=== PATIENT | female | born 1975 | race Two or more races ===

== ENCOUNTER 2019-02-14 16:19 | Emergency (ER) | payer OTHER ==
[~2019-02-14] VITALS: Ht 165.1 cm; Wt 86.2 kg
[~2019-02-14 16:19] MED LIST: ALBU8.5H6 INH; ALPR1TAB2 PO; CYAN25008 PO; CYCL5TAB PO; HYDR-2761 PO; MULT1CAP15 PO; NAPR220C4 PO; NITR100C PO; OXYM10TA PO; OXYM5TAB PO; SUMA50TA3 PO
[2019-02-14 16:41] VITALS: BP 157/67
[2019-02-14] MEDS ORDERED: IBUPROFEN 400 MG TABLET. PO ONE (17:30)
[2019-02-14] MEDS ORDERED: HYDROcodone/APAP 5/325MG 1 TAB TABLET PO ONE (17:30)
[2019-02-14] MEDS ORDERED: ONDANSETRON ODT 4 MG TAB.RAPDIS. PO ONE (17:30)
[2019-02-14] MEDS ORDERED: ONDA4TAB7 PO (18:14)
[2019-02-14] MEDS ORDERED: HYDR-3164 PO (18:14)
--- NOTE | 2019-02-14 18:15 | PHYS DOC ---
Past Medical History Past Medical History: Anxiety Additional Past Medical Histor: gout Past Surgical History: Cholecystectomy, Tubal ligation Alcohol Use: Occasionally Drug Use: Marijuana Adult General Chief Complaint Chief Complaint: ANKLE PROBLEM HPI HPI Patient is a 44 year old female with no significant medical history who presents today complaining of 10 out of 10 left lateral ankle pain that began today after she stepped and rolled her ankle. Patient states the pain is worse on weight-bearing. Patient states she has not taken anything to alleviate the pain. Review of Systems Review of Systems Constitutional: Denies fever or chills [] Musculoskeletal: Reports left ankle pain Integument: Denies rash or skin lesions [] Neurologic: Denies headache, focal weakness or sensory changes [] All other systems were reviewed and found to be within normal limits, except as documented in this note. Current Medications Current Medications Current Medications Medications (Trade) Dose Ordered Sig/Greg Start Time Stop Time Status Last Admin Dose Admin Acetaminophen/ Hydrocodone Bitart (Lortab 5/325) 2 tab 1X ONCE 02/14/19 17:30 02/14/19 17:31 DC 02/14/19 17:43 2 TAB Ibuprofen (Motrin) 800 mg 1X ONCE 02/14/19 17:30 02/14/19 17:31 DC 02/14/19 17:42 800 MG Ondansetron HCl (Zofran Odt) 4 mg 1X ONCE 02/14/19 17:30 02/14/19 17:31 DC 02/14/19 17:30 4 MG Allergies Allergies Allergies Coded Allergies Type Severity Reaction Last Updated Verified tree nut Allergy Severe HARD TO BREATHE 11/05/15 Yes omeprazole Allergy Intermediate Hives 11/05/15 Yes oxycodone Allergy Unknown VOMITING 11/05/15 No Physical Exam Physical Exam Constitutional: Well developed, well nourished, no acute distress, non-toxic appearance. [] Skin: Warm, dry, no erythema, no rash. [] Back: No tenderness, no CVA tenderness. [] Extremities: Moderate swelling noted to the left lateral ankle. Moderate tenderness on palpation of the left lateral ankle. Full range of motion to the left foot and left toes. +2 left pedal pulse. Cap refill less than 2 seconds left toes. Sensation intact to the left lower extremity. Neurologic: Alert and oriented X 3, normal motor function, normal sensory function, no focal deficits noted. [] Psychologic: Affect normal, judgement normal, mood normal. [] Current Patient Data Vital Signs Vital Signs Date Time Temp Pulse Resp B/P (MAP) Pulse Ox O2 Delivery O2 Flow Rate FiO2 02/14/19 17:43 16 98 Room Air 02/14/19 16:41 98.2 67 157/67 (97) 98.2 EKG EKG [] Radiology/Procedures Radiology/Procedures [] Course & Med Decision Making Course & Med Decision Making Pertinent Labs and Imaging studies reviewed. (See chart for details) This is a 44-year-old male patient presented to the ED today with left ankle pain after she stepped wrong and rolled her ankle. Left ankle x-rays interpreted by is noted for tibia fracture. Patient was placed in a stirrup and posterior leg splint by the durability technician, neurovascular exam done by me is normal. Ice elevation encouraged. Discharged with instructions to contact the orthopedic doctor on Sunday and set up a follow-up appointment. Crutches provided. Dragon Disclaimer Dragon Disclaimer This electronic medical record was generated, in whole or in part, using a voice recognition dictation system. Departure Departure Impression: Primary Impression: Left tibial fracture Disposition: HOME, SELF-CARE Condition: STABLE Referrals: Farzad ANNE MD (PCP) DIANNA LOPEZ II, MD call him on Sunday and follow up Patient Instructions: Tibial Fracture, Adult Additional Instructions: You were evaluated in the emergency room a different of the left ankle fracture. Try to ice and elevate the extremity, contact the provided orthopedic doctor on Sunday morning and set up a follow-up appointment. Do not bear weight on the left lower extremity. Scripts Ondansetron Hcl (ZOFRAN) 4 Mg Tablet 1 TAB PO Q6HRS, #20 TAB Prov: ALFREDO WILCOX ANVILSMITH 02/14/19 Hydrocodone/Apap 5-325 (NORCO 5-325 TABLET) 1 Each Tablet 1 TAB PO Q6-8HRS PRN for PAIN, #20 TAB Prov: ALFREDO WILCOX APRN 02/14/19 Problem Qualifiers Primary Impression: Left tibial fracture Encounter type: initial encounter Tibia location: distal Fracture type: closed Fracture morphology: other fracture Qualified Codes: S82.392A - Other fracture of lower end of left tibia, initial encounter for closed fracture ALFREDO WILCOX APRN Feb 14, 2019 18:14
--- NOTE | 2019-02-14 23:56 | RAD ---
Left ankle 3 views: Reason for examination: Fell today with pain and swelling. There appears to be an avulsion fracture off the distal tip of the fibula. No other definite site of fracture or dislocation is seen. The joint spaces are maintained. Plantar spur is seen on the calcaneus. There is also spurring at the insertion of the Achilles tendon. There is soft tissue swelling about the lateral malleolus. IMPRESSION: Small avulsion fracture off the distal tip of the fibula with soft tissue swelling. Electronically signed by: Adriane Fisher MD (02/14/2019 11:54 PM) [facility]
== END 2019-02-14 18:30 | disposition home or self-care (01) ==
LOC: ER 16:19
DX: S82.392A Other fracture of lower end of left tibia, initial encounter for closed fracture (principal); S82.832A Other fracture of upper and lower end of left fibula, initial encounter for closed fracture; Z88.8 Allergy status to other drugs, medicaments and biological substances; Z88.5 Allergy status to narcotic agent; X50.9XXA Other and unspecified overexertion or strenuous movements or postures, initial encounter; Y93.89 Activity, other specified; Y92.89 Other specified places as the place of occurrence of the external cause; Y99.8 Other external cause status
CPT/HCPCS: 29515; 73610; 99284; Q0162

== ENCOUNTER 2019-10-31 11:04 | Emergency (ER) | payer MEDICAID, OTHER ==
[~2019-10-31] VITALS: Ht 162.6 cm; Wt 72.6 kg
[~2019-10-31 11:04] MED LIST changes: +HYDR-3164 PO; +ONDA4TAB7 PO
[2019-10-31] MEDS ORDERED: IV NORMAL SALINE 1000ML BAG 1,000 ML IV SCH (11:44)
[2019-10-31] MEDS ORDERED: ASPIRIN 325 MG TABLET PO ONE (11:45)
[2019-10-31] MEDS ORDERED: ONDANSETRON PF 4 MG/2 ML VIAL. IVP ONE (11:45)
[2019-10-31] MEDS ORDERED: fentaNYL PF VIAL 100 MCG/2 ML VIAL IV ONE (11:45)
[2019-10-31 12:05] LABS: BASO # 0.1 x10^3/uL (0.0-0.2); BASO % 1 % (0-3); EOS # 0.7 x10^3/uL (0.0-0.7); EOS % 9 % (0-3); HEMATOCRIT 40.6 % (36.0-47.0); HEMOGLOBIN 13.9 g/dL (12.0-15.5); LYMPH # 1.7 x10^3/uL (1.0-4.8); LYMPH % 22 % (24-48); MEAN CORPUSCULAR HEMOGLOBIN 30 pg (25-35); MEAN CORPUSCULAR HGB CONC 34 g/dL (31-37); MEAN CORPUSCULAR VOLUME 88 fL (79-100); MONO # 0.4 x10^3/uL (0.0-1.1); MONO % 6 % (0-9); NEUT # 4.7 x10^3/uL (1.8-7.7); NEUT % 62 % (31-73); PLATELET COUNT 286 x10^3/uL (140-400); RED BLOOD COUNT 4.59 x10^6/uL (3.50-5.40); RED CELL DISTRIBUTION WIDTH 13.2 % (11.5-14.5); WHITE BLOOD COUNT 7.7 x10^3/uL (4.0-11.0)
[2019-10-31 12:09] LABS: BILIRUBIN,URINE NEGATIVE (NEG); CLARITY,URINE CLOUDY; COLOR,URINE YELLOW; NITRITE,URINE NEGATIVE (NEG); PROTEIN,URINE NEGATIVE (NEG-TRACE)
[2019-10-31 12:17] LABS: RBC,URINE OCC /HPF (0-2); SQUAMOUS EPITHELIAL CELL,UR MANY /LPF; WBC,URINE OCC /HPF (0-4)
--- NOTE | 2019-10-31 12:17 | PHYS DOC ---
Past Medical History Past Medical History: Anxiety Additional Past Medical Histor: gout Past Surgical History: Cholecystectomy, Tubal ligation Alcohol Use: Occasionally Drug Use: Marijuana Adult General Chief Complaint Chief Complaint: CHEST PAIN HPI HPI Patient is a 44 year old female with history of GERD, DM, HTN, tupal ligation who presents with chest pain. Pt reports her dull chest pain started 2 hrs in the mid chest that radiates to the left arm and back. The pain is worsened with exertion and movement. Better by lying flat. She tried "Tums" since she thought it was her stomach; however, she did not get any relieve from that. Denies any previous episodes of similar symptoms. Denies any OCP or hormone therapy, recent travel or sick contact, trauma or fall, unilateral leg pain or personal history of PE or DVT. Pt reports things has been a little stressful at home. Her mother had ACS. Review of Systems Review of Systems Constitutional: Denies fever or chills [] Eyes: Denies change in visual acuity, redness, or eye pain [] HENT: Denies nasal congestion or sore throat [] Respiratory: Denies cough or shortness of breath [] Cardiovascular: No additional information not addressed in HPI [] GI: Denies abdominal pain, nausea, vomiting, bloody stools or diarrhea [] : Denies dysuria or hematuria [] Musculoskeletal: Denies back pain or joint pain [] Integument: Denies rash or skin lesions [] Neurologic: Denies headache, focal weakness or sensory changes [] Endocrine: Denies polyuria or polydipsia [] All other systems were reviewed and found to be within normal limits, except as documented in this note. Current Medications Current Medications Current Medications Medications (Trade) Dose Ordered Sig/Greg Start Time Stop Time Status Last Admin Dose Admin Aspirin (Tiffanie Aspirin) 325 mg 1X ONCE 10/31/19 11:45 10/31/19 11:59 DC 10/31/19 12:34 325 MG Famotidine (Pepcid Vial) 20 mg 1X ONCE 10/31/19 13:00 10/31/19 13:01 DC 10/31/19 13:33 20 MG Fentanyl Citrate (Fentanyl 2ml Vial) 50 mcg 1X ONCE 10/31/19 11:45 10/31/19 11:59 DC 10/31/19 12:38 50 MCG Ondansetron HCl (Zofran) 4 mg 1X ONCE 10/31/19 11:45 10/31/19 11:59 DC 10/31/19 12:35 4 MG Sodium Chloride 1,000 ml @ 1,000 mls/hr Q1H 10/31/19 11:44 10/31/19 12:43 DC 10/31/19 12:36 1,000 MLS/HR Allergies Allergies Allergies Coded Allergies Type Severity Reaction Last Updated Verified tree nut Allergy Severe HARD TO BREATHE 11/05/15 Yes omeprazole Allergy Intermediate Hives 11/05/15 Yes oxycodone Allergy Unknown VOMITING 11/05/15 No Physical Exam Physical Exam Constitutional: Well developed, well nourished, no acute distress, non-toxic appearance. [] HENT: Normocephalic, atraumatic, bilateral external ears normal, oropharynx moist, no oral exudates, nose normal. [] Eyes: PERRLA, EOMI, conjunctiva normal, no discharge. [] Neck: Normal range of motion, no tenderness, supple, no stridor. [] Cardiovascular:Heart rate regular rhythm, no murmur [] Lungs & Thorax: Bilateral breath sounds clear to auscultation [] Abdomen: Bowel sounds normal, soft, no tenderness, no masses, no pulsatile masses. [] Skin: Warm, dry, no erythema, no rash. [] Back: No tenderness, no CVA tenderness. [] Extremities: No tenderness, no cyanosis, no clubbing, ROM intact, no edema. [] Neurologic: Alert and oriented X 3, normal motor function, normal sensory function, no focal deficits noted. [] Psychologic: Affect normal, judgement normal, mood normal. [] Current Patient Data Vital Signs Vital Signs Date Time Temp Pulse Resp B/P (MAP) Pulse Ox O2 Delivery O2 Flow Rate FiO2 10/31/19 13:09 16 97 Room Air 10/31/19 11:20 98.0 65 142/70 (94) 98.0 Lab Values Laboratory Tests Test 10/31/19 11:30 10/31/19 11:53 10/31/19 11:55 White Blood Count 7.7 x10^3/uL (4.0-11.0) Red Blood Count 4.59 x10^6/uL (3.50-5.40) Hemoglobin 13.9 g/dL (12.0-15.5) Hematocrit 40.6 % (36.0-47.0) Mean Corpuscular Volume 88 fL (79-100) Mean Corpuscular Hemoglobin 30 pg (25-35) Mean Corpuscular Hemoglobin Concent 34 g/dL (31-37) Red Cell Distribution Width 13.2 % (11.5-14.5) Platelet Count 286 x10^3/uL (140-400) Neutrophils (%) (Auto) 62 % (31-73) Lymphocytes (%) (Auto) 22 % (24-48) L Monocytes (%) (Auto) 6 % (0-9) Eosinophils (%) (Auto) 9 % (0-3) H Basophils (%) (Auto) 1 % (0-3) Neutrophils # (Auto) 4.7 x10^3/uL (1.8-7.7) Lymphocytes # (Auto) 1.7 x10^3/uL (1.0-4.8) Monocytes # (Auto) 0.4 x10^3/uL (0.0-1.1) Eosinophils # (Auto) 0.7 x10^3/uL (0.0-0.7) Basophils # (Auto) 0.1 x10^3/uL (0.0-0.2) D-Dimer ([place]orena) 0.32 ug/mlFEU (0.00-0.50) Sodium Level 140 mmol/L (136-145) Potassium Level 3.5 mmol/L (3.5-5.1) Chloride Level 105 mmol/L (98-107) Carbon Dioxide Level 26 mmol/L (21-32) Anion Gap 9 (6-14) Blood Urea Nitrogen 8 mg/dL (7-20) Creatinine 0.6 mg/dL (0.6-1.0) Estimated GFR (Cockcroft-Gault) 109.1 BUN/Creatinine Ratio 13 (6-20) Glucose Level 98 mg/dL (70-99) Calcium Level 8.5 mg/dL (8.5-10.1) Magnesium Level 2.0 mg/dL (1.8-2.4) Total Bilirubin 0.3 mg/dL (0.2-1.0) Aspartate Amino Transferase (AST) 15 U/L (15-37) Alanine Aminotransferase (ALT) 22 U/L (14-59) Alkaline Phosphatase 96 U/L (46-116) Creatine Kinase 100 U/L (26-192) Creatine Kinase MB (Mass) 1.2 ng/mL (0.0-3.6) Creatine Kinase MB Relative Index 1.2 % (0-4) Troponin I Quantitative < 0.017 ng/mL (0.000-0.055) Total Protein 6.4 g/dL (6.4-8.2) Albumin 3.6 g/dL (3.4-5.0) Albumin/Globulin Ratio 1.3 (1.0-1.7) Lipase 852 U/L (73-393) H Urine Collection Type Unknown Urine Color Yellow Urine Clarity Cloudy Urine pH 7.0 Urine Specific [place] 1.010 Urine Protein Negative mg/dL (NEG-TRACE) Urine Glucose (UA) Negative mg/dL (NEG) Urine Ketones (Stick) Negative mg/dL (NEG) Urine Blood Negative (NEG) Urine Nitrite Negative (NEG) Urine Bilirubin Negative (NEG) Urine Urobilinogen Dipstick 1.0 mg/dL (0.2 mg/dL) Urine Leukocyte Esterase Negative (NEG) Urine RBC Occ /HPF (0-2) Urine WBC Occ /HPF (0-4) Urine Squamous Epithelial Cells Many /LPF Urine Bacteria Few /HPF (0-FEW) Urine Mucus Slight /LPF Urine Opiates Screen Neg (NEG) Urine Methadone Screen Neg (NEG) Urine Barbiturates Neg (NEG) Urine Phencyclidine Screen Neg (NEG) Urine Amphetamine/Methamphetamine Neg (NEG) Urine Benzodiazepines Screen Neg (NEG) Urine Cocaine Screen Neg (NEG) Urine Cannabinoids Screen Pos (NEG) Urine Ethyl Alcohol Neg (NEG) POC Urine HCG, Qualitative Hcg negative (Negative) Laboratory Tests 10/31/19 11:30 Laboratory Tests 10/31/19 11:30 EKG EKG 11:16:03 sinus rhythm, rate 66bpm, Inverted T wave in V1-2. No ST elevation. Wandering baseline. Radiology/Procedures Radiology/Procedures [] Course & Med Decision Making Course & Med Decision Making Pertinent Labs and Imaging studies reviewed. (See chart for details) Patient is a 44 year old female with history of GERD, DM, HTN who presents with chest pain. DDX: PNA, ACS, MSK-chontochonritis, doubt PE with HPI, PE and unremarkable vitals. Will order labs, CXR and EKG. Provide zofran and pain control at bedside. Pt is stable. Will reassess 12:57pm Troponin negative, umremarkable D-dimer. Pt's HR was in the 40s in the room. However, she reports having a low heart rate at baseline. Her pain has decreased from 8/10 to 3/10. And nausea has improved. CXR pending. Will provide some pepcid. Will reassess. Kavon Disclaimer Dragon Disclaimer This electronic medical record was generated, in whole or in part, using a voice recognition dictation system. Departure Departure Impression: Primary Impression: Chest pain Disposition: HOME, SELF-CARE Condition: STABLE Referrals: Farzad ANNE MD (PCP) ALON MANNING MD Patient Instructions: Chest Pain (Nonspecific), [id number] The HEART Score for CP Pts HEART Score for Chest Pain: HEART Score for Chest Pain Response (Comments) Value History Moderately Suspicious 1 ECG Nonspecific Repolarizatio 1 Age < 45 0 Risk Factors 1 or 2 Risk Factors 1 Troponin < Normal Limit 0 Total 3 Risk Factors: Risk Factors: DM, Current or recent (<one month) smoker, HTN, HLP, family history of CAD, obesity. Risk Scores: Score 0 - 3: 2.5% MACE over next 6 weeks - Discharge Home Score 4 - 6: 20.3% MACE over next 6 weeks - Admit for Clinical Observation Score 7 - 10: 72.7% MACE over next 6 weeks - Early Invasive Strategies Problem Qualifiers Primary Impression: Chest pain Chest pain type: unspecified Qualified Codes: R07.9 - Chest pain, unspecified MIHIR SOW DO Oct 31, 2019 12:16
[2019-10-31 12:18] LABS: BACTERIA,URINE FEW /HPF (0-FEW)
[2019-10-31 12:19] LABS: BARBITURATES NEG (NEG); BENZODIAZEPINES NEG (NEG); CANNABINOIDS POS (NEG); COCAINE NEG (NEG); METHADONE NEG (NEG); OPIATES NEG (NEG); PHENCYCLIDINE NEG (NEG)
--- NOTE | 2019-10-31 12:19 | EKG ---
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
[2019-10-31 12:20] LABS: CALCIUM 8.5 mg/dL (8.5-10.1); CREATININE 0.6 mg/dL (0.6-1.0); GFR 109.1; POTASSIUM 3.5 mmol/L (3.5-5.1)
[2019-10-31 12:20] LABS: AMPHETAMINE/METHAMPHETAMINE NEG (NEG)
[2019-10-31 12:27] LABS: ALBUMIN 3.6 g/dL (3.4-5.0); ALBUMIN/GLOBULIN RATIO 1.3 (1.0-1.7); TOTAL BILIRUBIN 0.3 mg/dL (0.2-1.0); TOTAL PROTEIN 6.4 g/dL (6.4-8.2)
[2019-10-31] MEDS ORDERED: FAMOTIDINE 20 MG/2 ML VIAL IVP ONE (13:00)
--- NOTE | 2019-10-31 13:23 | RAD ---
CHEST PA LATERAL History: Chest pain Comparison: 11/05/2015 to chest x-ray exam. Findings: Frontal and lateral views of the chest were obtained. The cardiomediastinal silhouette is normal. Pulmonary vasculature is normal. The lungs are clear. No pleural effusion or pneumothorax is seen. There is no acute bone abnormality. Right upper quadrant surgical clips are present. IMPRESSION: No acute cardiopulmonary process. Electronically signed by: Vishal Juarez MD (10/31/2019 1:20 PM) [facility]
[2019-10-31 14:30] VITALS: BP 133/60
== END 2019-10-31 14:48 | disposition home or self-care (01) ==
LOC: ER 11:04
DX: R07.89 Other chest pain (principal); K21.9 Gastro-esophageal reflux disease without esophagitis; E11.9 Type 2 diabetes mellitus without complications; I10 Essential (primary) hypertension; M10.9 Gout, unspecified; Z88.5 Allergy status to narcotic agent; Z91.018 Allergy to other foods; Z88.8 Allergy status to other drugs, medicaments and biological substances
CPT/HCPCS: 36415; 71046; 80053; 80307; 81001; 81025; 82553; 83690; 83735; 84484; 85025; 85379; 93005; 96361; 96374; 96375; 99285; J2405; J3010; J3490; J7030

== ENCOUNTER → 2021-01-31 | Outpatient (CLI) | payer MEDICAID ==
[~2021-01-31] MED LIST changes: +REGADENOSON 0.4 MG/5 ML DISP.SYRIN. IV ONE
--- NOTE | 2021-01-31 12:48 | RAD ---
MR#: [id number] Date of Study: 01/31/2021 Ordering Physician: HENRRY MCKEON, Referring Physician: JUDAH LOVING Tech: RT Moreno McraeR) (N) APPROVED REPORT Test Type: Pharmacological Stress Nurse/Tech: Caroline Scott RN Test Indications: chest pain,shortness of breath,and fatigue Cardiac History: Smoker Medications: See Electronic Medical Record Medical History: See Electronic Medical Record Resting ECG: SB Resting Heart Rate: 47 bpm Resting Blood Pressure: 117/67mmHg Pretest Chest Pain: Atypical angina Nurse/Tech Notes S1,S2 and lungs diminished in the bases. Consent: The procedure was explained to the patient in lay terms. Informed consent was witnessed. Armin eout was entered into [employer]. History and Stress Test performed by RT Clementina (R) (N) Pharm. Details Pharmacologic stress testing was performed using 0.4mg per 5ml of regadenoson given intravenously ove r 7-10 seconds. Stress Symptoms Dyspnea,patient complained of 10/10 chest pain at 2 minute harry of study POST EXERCISE Reason for Termination: Infusion complete Target HR: No Max HR: 109 bpm 73% of Maximum Predicted HR: 148 bpm Max Blood Pressure: 128/48mmHg Blood Pressure response to exercise: Normal blood pressure response during stress. Heart Rate response to exercise: WNL Chest Pain: Yes. see note above Arrhythmia: No. ST Change: No. INTERPRETATION Stress EKG Conclusion: The resting EKG showed a sinus rhythm with mild nonspecific ST-T wave changes. The stress EKG showed no significant changes from baseline. No EKG evidence of stress-induced ischemia. Imaging Protocol IMAGE PROTOCOL: Rest Tc-99m/stress Tc-99m 1 day Rest: Stress: Viability: Radiopharm.Tc99m KuwgesgjxMq11p Sestamibi Dose10.5mCi 31mCi Duration 15min. 10min. Img Date 01/31/2021 01/31/2021 Inj-Img Libr82zny. 60min. Rest Admin Site:IV - Right AntecubitalAdministrator:ANGELICA Jacobsen, ARRT (R)(N) Stress Admin Site: IV - Right AntecubitalAdministrator: Billie Chan, JUDAHTCB, ARRT (R)(N) STRESS DATA End Diast. Vol.131.0mlAv. Heart Rate50.0bpm End Syst. Vol.35.0mlCO Index BSA4.8L/min Myocardial Zmtb478.0gEject. Iutnpmjp20.0% Stress Rates Pk. Fill Rate2.39EDV/secLVtime Pk. Fill 186.17msec Pk. Empty Rate2.62ESV/secLVtime Pk. Clkpg633.69msec 10/31 Pk. Fill1.66EDV/sec Stress Scores Regional WT0.00Summed WT0.00 Regional WM0.00Summed WM0.00 LV Perfusion The stress scans showed no significant defects. The rest scans showed no significant defects. Nuclear imaging shows no reversible ischemia or infarct. Wall Motion Left ventricular systolic function is normal with an ejection fraction of 68%. LV Perf. Quant 17 Seg. SSS1.00 17 Seg. SRS1.00 17 Seg. SDS1.00 Stress Defect Extent (% LAD)0.00Rest Defect Extent (% LAD)5.60Rev. Defect Extent (% LAD)0.00 Stress Defect Extent (% LCX) 0.00Rest Defect Extent (% LCX)3.80Rev. Defect Extent (% LCX)0.00 Stress Defect Extent (% RCA)0.00Rest Defect Extent (% RCA)0.00Rev. Defect Extent (% RCA)0.00 Stress Defect Extent (% LYRIC)0.00Rest Defect Extent (% LYRIC)3.00Rev. Defect Extent (% LYRIC)0.00 Conclusion 1. No EKG evidence of stress-induced ischemia. 2. Nuclear imaging shows no reversible ischemia or infarct. 3. Normal left ventricular systolic function with an ejection fraction of 68%. 4. Low risk Lexiscan nuclear stress test. Signed by : Henrry Mckeon MD Electronically Approved : 01/31/2021 12:48:08
== END ==
LOC: NM 09:08
PROVIDERS: ATTEND Internal Medicine Cardiovascular Disease
DX: R07.9 Chest pain, unspecified (principal); R06.02 Shortness of breath; Z87.891 Personal history of nicotine dependence
CPT/HCPCS: 78452; 93017; A9500; J2785

== ENCOUNTER 2021-08-07 16:55 | Emergency (ER) | payer MEDICAID ==
[~2021-08-07] VITALS: Ht 162.6 cm; Wt 98.0 kg
[~2021-08-07 16:55] MED LIST changes: -REGADENOSON 0.4 MG/5 ML DISP.SYRIN. IV ONE
[2021-08-07 17:07] VITALS: BP 151/68
--- NOTE | 2021-08-07 17:19 | PHYS DOC ---
Past Medical History Past Medical History: Anxiety Additional Past Medical Histor: gout, bradycardia Past Surgical History: Cholecystectomy, Tubal ligation Smoking Status: Current Every Day Smoker Alcohol Use: Occasionally Drug Use: Marijuana General Adult EDM: Chief Complaint: CHEST PAIN HPI: HPI: Patient is a 46 year old female with history of tobacco abuse, anxiety who presents with chest tightness. Was in a seated position and thinking about financial problems in her life/house foreclosure when she began to feel very anxious, and started to have chest tightness, and tingling in the hands. Chest tightness radiated towards the left neck and the left shoulder. She went to a [employer] station, concerned that she may have a heart attack, was brought to the emergency department. Symptoms have vastly improved at this point. Denies previous history of anxiety attacks or chest pain. No history of DM, HTN, HLD. Does not know her family history. No recent lower extremity edema, estrogen use, hospitalizations/surgeries, no cancer history. No hemoptysis. States that she recovered from Covid approximately 1 month ago. Denies ever having any serious symptoms. Review of Systems: Review of Systems: Constitutional: Denies fever or chills. [] Eyes: Denies change in visual acuity. [] HENT: Denies nasal congestion or sore throat. [] Respiratory: Denies cough or shortness of breath. [] Cardiovascular: Reports chest pain. Denies edema. [] GI: Denies abdominal pain, nausea, vomiting, bloody stools or diarrhea. [] : Denies dysuria. [] Musculoskeletal: Denies back pain or joint pain. [] Integument: Denies rash. [] Neurologic: Denies headache, focal weakness or sensory changes. [] Endocrine: Denies polyuria or polydipsia. [] Lymphatic: Denies swollen glands. [] Psychiatric: Reports anxiety Heart Score: C/O Chest Pain: Yes HEART Score for Chest Pain: HEART Score for Chest Pain Response (Comments) Value History Slighlty/Non-Suspicious 0 ECG Normal 0 Age < 45 0 Risk Factors 1 or 2 Risk Factors 1 Troponin < Normal Limit 0 Total 1 Risk Factors: Risk Factors: Smoker, obesity Risk Scores: Score 0 - 3: 2.5% MACE over next 6 weeks - Discharge Home Score 4 - 6: 20.3% MACE over next 6 weeks - Admit for Clinical Observation Score 7 - 10: 72.7% MACE over next 6 weeks - Early Invasive Strategies Allergies: Allergies: Allergies Coded Allergies Type Severity Reaction Last Updated Verified tree nut Allergy Severe HARD TO BREATHE 11/05/15 Yes omeprazole Allergy Intermediate Hives 11/05/15 Yes oxycodone Allergy Unknown VOMITING 11/05/15 No Physical Exam: PE: Constitutional: Well developed, well nourished, no acute distress, non-toxic appearance. [] HENT: Normocephalic, atraumatic, bilateral external ears normal, oropharynx moist, no oral exudates, nose normal. [] Eyes: PERRLA, EOMI, conjunctiva normal, no discharge. [] Neck: Normal range of motion, no tenderness, supple, no stridor. [] Cardiovascular:Heart rate regular rhythm, no murmur [] Lungs & Thorax: Bilateral breath sounds clear to auscultation [] Abdomen: Bowel sounds normal, soft, no tenderness, no masses, no pulsatile masses. [] Skin: Warm, dry, no erythema, no rash. [] Back: No tenderness, no CVA tenderness. [] Extremities: Radial and DP pulses intact bilaterally. No tenderness, no cyanosis, no clubbing, ROM intact, no edema. [] Neurologic: Alert and oriented X 3, normal motor function, normal sensory function, no focal deficits noted. [] Psychologic: Anxious affect, congruent mood. Current Patient Data: Labs: Laboratory Tests Test 08/07/21 16:59 POC Urine HCG, Qualitative Hcg negative (Negative) EKG: EKG: Sinus rhythm. Rate 55. Normal intervals. Normal axis. No acute ischemic changes. [] Radiology/Procedures: Radiology/Procedures: [] Impression: [facility] [address] [place], [place] [id number] IMAGING REPORT Signed PATIENT: SHANE BARROS ACCOUNT: [id number] : 1975 LOCATION: ER AGE: 46 SEX: F EXAM STATUS: PRE ER ORD. PHYSICIAN: THANH GARVEY MD REASON: chest tightness, s/p covid infection 1 mo ago PROCEDURE: CHEST AP ONLY XR CHEST 1V Clinical History: Reason: chest tightness, s/p covid infection 1 mo ago / Spl. Instructions: / History: Technique: AP view of the chest was obtained at 08/07/2021 5:33 PM. Comparison: None. Findings: The cardiomediastinal silhouette is normal. The pulmonary vasculature is normal. The lungs and pleural margins are clear. Impression: No evidence of an acute cardiopulmonary process. Electronically signed by: Phan Patton III, MD (08/07/2021 5:57 PM) [facility] DICTATED and SIGNED BY: PHAN PATTON III, MD DATE: 08/07/21 [id number] 0 Course & Med Decision Making: Course & Med Decision Making Pertinent Labs and Imaging studies reviewed. (See chart for details) Patient 46-year-old female who presents with anxiety and chest pain starting when thinking about foreclosure on her house. Most consistent with anxiety attack, with numbness in her hands and hyperventilation. EKG entirely nonischemic. Given obesity and smoking, will obtain a single troponin. If negative HEART Score is 1. Feel no further ACS evaluation needed. PERC negative. No PE work up indicated. Will obtain CXR to exclude mass, acute pulmonary process. No risk factors for aortic disease, pulses intact. Highly unlikely. No n/v to suggest esophageal injury. Hx of gastritis, could potentially be contributing. CBC, CMP, Troponin, CXR pending. 1718 Normal cell counts, no anemia. CXR clear. CMP unremarkable. Troponin negative. Low enough suspicion, that I will not pursue delta troponin. Will plan on DC with PCP follow up. Return precautions discussed. Kavon Disclaimer: Kavon Disclaimer: This electronic medical record was generated, in whole or in part, using a voice recognition dictation system. Departure Departure Impression: Primary Impression: Chest tightness Additional Impression: Anxious mood Disposition: HOME / SELF CARE / HOMELESS Condition: STABLE Referrals: Farzad ANNE MD (PCP) Schedule appointment in the next week Additional Instructions: Your chest x-ray, labs, and EKG were reassuring. If your symptoms persist please follow-up with your primary care doctor. If you develop chest pressure that is worse with walking or exerting yourself please return to the emergency department for reevaluation. Develop other new/concerning symptoms such as shortness of breath, fever/chills, severe abdominal pain etc. please return to the emergency department for reevaluation as well. Otherwise please follow-up with your primary care doctor in the next week. THANH GARVEY MD Aug 07, 2021 17:19
[2021-08-07 17:41] LABS: BASO # 0.1 x10^3/uL (0.0-0.2); BASO % 1 % (0-3); EOS # 0.9 x10^3/uL (0.0-0.7); EOS % 10 % (0-3); HEMATOCRIT 38.1 % (36.0-47.0); HEMOGLOBIN 13.2 g/dL (12.0-15.5); LYMPH # 2.2 x10^3/uL (1.0-4.8); LYMPH % 22 % (24-48); MEAN CORPUSCULAR HEMOGLOBIN 31 pg (25-35); MEAN CORPUSCULAR HGB CONC 35 g/dL (31-37); MEAN CORPUSCULAR VOLUME 88 fL (79-100); MONO # 0.6 x10^3/uL (0.0-1.1); MONO % 7 % (0-9); NEUT % 61 % (31-73); PLATELET COUNT 263 x10^3/uL (140-400); RED BLOOD COUNT 4.32 x10^6/uL (3.50-5.40); RED CELL DISTRIBUTION WIDTH 12.9 % (11.5-14.5); WHITE BLOOD COUNT 9.9 x10^3/uL (4.0-11.0)
[2021-08-07 17:49] LABS: CREATININE 0.6 mg/dL (0.6-1.0); GFR 108.1; POTASSIUM 3.7 mmol/L (3.5-5.1)
[2021-08-07 17:55] LABS: ALBUMIN 3.7 g/dL (3.4-5.0); ALBUMIN/GLOBULIN RATIO 1.4 (1.0-1.7); TOTAL BILIRUBIN 0.3 mg/dL (0.2-1.0); TOTAL PROTEIN 6.4 g/dL (6.4-8.2)
--- NOTE | 2021-08-07 17:59 | RAD ---
XR CHEST 1V Clinical History: Reason: chest tightness, s/p covid infection 1 mo ago / Spl. Instructions: / Histo ry: Technique: AP view of the chest was obtained at 08/07/2021 5:33 PM. Comparison: None. Findings: The cardiomediastinal silhouette is normal. The pulmonary vasculature is normal. The lungs and pleura l margins are clear. Impression: No evidence of an acute cardiopulmonary process. Electronically signed by: Javier Pollard III, MD (08/07/2021 5:57 PM) [facility]
--- NOTE | 2021-08-07 21:25 | EKG ---
[facility] [address] [place] [address] Test Date: 2021-08-07 Test Time: 16:56:08 Pat Name: SHANE BARROS Department: Room: Gender: F Screen Maker: : 1975 Requested By: THANH GARVEY Order Number: [id number] Reading MD: Javier Gudaalupe MD Measurements Intervals [place] Rate: 55 P: 47 SD: 164 QRS: 44 QRSD: 104 T: 61 QT: 432 QTc: 415 Interpretive Statements SINUS RHYTHM Electronically Signed On 08-15-2021 12:06:51 CDT by Javier Guadalupe MD
== END 2021-08-07 18:19 | disposition home or self-care (01) ==
LOC: ER 16:55
DX: R07.89 Other chest pain (principal); F41.9 Anxiety disorder, unspecified; F17.200 Nicotine dependence, unspecified, uncomplicated; Z88.5 Allergy status to narcotic agent; Z88.8 Allergy status to other drugs, medicaments and biological substances; Z91.018 Allergy to other foods
CPT/HCPCS: 36415; 71045; 80053; 81025; 84484; 85025; 93005; 99285